=== PATIENT | female | born 1975 | race Caucasian/White ===

== ENCOUNTER 2023-12-12 17:11 | Emergency (ER) | payer SELFPAY ==
[~2023-12-12] VITALS: Ht 157.5 cm; Wt 55.0 kg
[2023-12-12 17:14] VITALS: O2SAT 98
[2023-12-12] MEDS ORDERED: SODIUM CHLORIDE 0.9% 1,000 ML IV ONE (17:45)
[2023-12-12 18:00] VITALS: BP 119/66; PULSE 110; RESP 12; TEMP 36.55848; O2SAT 94
== END 2023-12-12 18:17 | disposition left against medical advice (07) ==
LOC: ER 17:11 → EDBEDREQ 17:44 → ER 18:17
DX: R53.1 Weakness (principal); E11.9 Type 2 diabetes mellitus without complications
CPT/HCPCS: 81025; 99283; J7030; Z7610